=== PATIENT | male | born 1980 | race African-American/Black ===

== ENCOUNTER 2018-09-30 14:48 | Emergency (ER) | payer SELFPAY ==
[~2018-09-30] VITALS: Ht 182.9 cm; Wt 116.0 kg
[2018-09-30] MEDS ORDERED: IV NORMAL SALINE 1,000ML 1,000 ML IV ONE ×2 (15:15→16:00)
[2018-09-30 15:20] LABS: BASO # 0.1 x10^3/uL (0.0-0.2); BASO % 1 % (0-3); EOS # 0.1 x10^3/uL (0.0-0.7); EOS % 1 % (0-3); HEMATOCRIT 42.8 % (39.0-53.0); HEMOGLOBIN 13.9 g/dL (13.0-17.5); LYMPH # 4.9 x10^3/uL (1.0-4.8); LYMPH % 28 % (24-48); MEAN CORPUSCULAR HEMOGLOBIN 32 pg (25-35); MEAN CORPUSCULAR HGB CONC 33 g/dL (31-37); MEAN CORPUSCULAR VOLUME 98 fL (79-100); MONO # 1.9 x10^3/uL (0.0-1.1); MONO % 11 % (0-9); NEUT # 10.3 x10^3uL (1.8-7.7); NEUT % 60 % (31-73); PLATELET COUNT 224 x10^3/uL (140-400); RED BLOOD COUNT 4.35 x10^6/uL (4.30-5.70); RED CELL DISTRIBUTION WIDTH 12.9 % (11.5-14.5); WHITE BLOOD COUNT 17.3 x10^3/uL (4.0-11.0)
--- NOTE | 2018-09-30 15:20 | PHYS DOC ---
Adult General Chief Complaint Chief Complaint: OVERDOSE HPI HPI Patient is a 30-year-old male presents via EMS after being found down with presumed intoxication with K2. He became combative for EMS when they tried to arouse him. EMS gave 400 mg of ketamine to deal with this agitation. History is limited from the patient due to altered mental status.[] Review of Systems Review of Systems Unable to obtain due to altered mental status All other systems were reviewed and found to be within normal limits, except as documented in this note. Physical Exam Physical Exam Constitutional: Well developed, well nourished, sonorous respirations, not protecting his airway[] HENT: Normocephalic, atraumatic, bilateral external ears normal, TMs are clear, no blood. The TM, no fluid oropharynx moist, no oral exudates, nose normal. Pooled oral secretions [] Eyes: PERRLA, conjunctiva normal, no discharge. [] Neck: Normal range of motion, no tenderness, supple, no stridor. [] Cardiovascular:Heart rate is mildly tachycardic in the low 100s with a regular rhythm, no murmur [] Lungs & Thorax: Bilateral breath sounds clear to auscultation [] Abdomen: Bowel sounds normal, soft, no tenderness, no masses, no pulsatile masses. [] Skin: Warm, dry, no erythema, no rash. [] Back: No tenderness, no CVA tenderness. [] Extremities: No tenderness, no cyanosis, no clubbing, ROM intact, no edema. [] Neurologic: GCS of 7 -E2, V1, M4 . [] Psychologic: Unable to assess. [] EKG EKG EKG shows a sinus rhythm at 102 bpm, normal axis, normal QTC, patient has an incomplete right bundle-branch block, no ST elevation. Interpreted by me at 1519.[] Radiology/Procedures Radiology/Procedures PROCEDURE: CT HEAD AND CERVICAL SPINE WO CT scan of the head without contrast 09/30/2018 Clinical History: Altered mental status. Technique: Unenhanced, contiguous, 5 mm axial sections were obtained through the head. One or more of the following individualized dose reduction techniques were utilized for this study: 1. Automated exposure control. 2. Adjustment of the mA and/or kV according to patient size. 3. Use of iterative reconstruction technique. Findings: Images from the study are degraded by patient motion and due to the patient's large body habitus. The ventricles and sulci are within normal limits in size and configuration. No acute parenchymal abnormality is seen. No extra-axial fluid collection is noted. No skull fracture is seen. Near complete opacification of the right maxillary sinus due to mucosal thickening is seen. Moderate mucosal thickening is seen involving ethmoid air cells bilaterally. No skull fracture is seen. IMPRESSION: No acute intracranial abnormality is seen. CT scan of the cervical spine without contrast 09/30/2018 Clinical history: Patient found down and unresponsive. Technique: Unenhanced, contiguous, 0.625 mm axial sections were obtained through the cervical spine. Axial, coronal and sagittal reconstructed images were obtained. One or more of the following individualized dose reduction techniques were utilized for this study: 1. Automated exposure control. 2. Adjustment of the mA and/or kV according to patient size. 3. Use of iterative reconstruction technique. Findings: Images from the study are degraded by patient motion and due to the patient's large body habitus. Sagittal and coronal reconstructed images demonstrate mild lateral curvature of the cervical spine, convex to the left. There is straightening of the normal cervical lordosis. An ET tube is noted in place. No fracture or subluxation of the cervical vertebrae is seen. Impression: No fracture or subluxation of the cervical vertebra is identified. PROCEDURE: PORTABLE CHEST 1V Portable chest, 09/30/2018: HISTORY: Altered mental status And ET tube is in place with its tip located 3-4 cm above the ursula. The depth of inspiration is poor. The heart is at the upper limits of normal in size for the AP technique. There are streaky bibasilar opacities, probably discoid atelectasis. There is no evidence of pneumothorax or pleural fluid. IMPRESSION: 1. The ET tube is in satisfactory position. 2. Poor depth of inspiration with bibasilar atelectasis.[] Course & Med Decision Making Course & Med Decision Making Pertinent Labs and Imaging studies reviewed. (See chart for details) ED course: Patient arrived, was placed in bed, had a nasal trumpet placed. His oxygen saturation was noted to decrease to the 70s percent, he was placed on nonrebreather is a bridge to intubation. He was intubated utilizing lidocaine to prevent intracranial pressure increase with intubation, etomidate, and succinylcholine. 8.0 ET tube was visualized passing through the cords. He was transported to and from [place] with any complications. After the return of lab and imaging findings, these were discussed with the hospitalist is consultation for admission. He was admitted to [facility] due to their higher le [place] of ICU capabilities. Medical decision making: Patient with altered mental status that was not maintaining his airway. Concerned about substance use/abuse. There is no evidence of a stroke, bleed, cervical spine fracture, or pneumonia. Other laboratory testing is pending at the time of this dictation.[] Dragon Disclaimer Dragon Disclaimer This electronic medical record was generated, in whole or in part, using a voice recognition dictation system. Departure Departure: Impression: Primary Impression: Altered mental status Disposition: 05 TRANSFER OTHER Admitting Physician: Low Hooper Condition: IMPROVED Referrals: PCP,NO (PCP) Problem Qualifiers Primary Impression: Altered mental status Altered mental status type: coma Coma depth: [employer] coma 3-8 Coma timing: at arrival to emergency department Qualified Codes: R40.2432 - [employer] coma scale score 3-8, at arrival to emergency department OLIVA CID DO Sep 30, 2018 15:20
--- NOTE | 2018-09-30 15:24 | RAD ---
Portable chest, 09/30/2018: HISTORY: Altered mental status And ET tube is in place with its tip located 3-4 cm above the ursula. The depth of inspiration is poor. The heart is at the upper limits of normal in size for the AP technique. There are streaky bibasilar opacities, probably discoid atelectasis. There is no evidence of pneumothorax or pleural fluid. IMPRESSION: 1. The ET tube is in satisfactory position. 2. Poor depth of inspiration with bibasilar atelectasis. Electronically signed by: Jc Padgett MD (09/30/2018 3:21 PM) [facility]
[2018-09-30 15:38] LABS: ALBUMIN 3.4 g/dL (3.4-5.0); ALBUMIN/GLOBULIN RATIO 0.8 (1.0-1.7); CREATININE 1.6 mg/dL (0.7-1.3); POTASSIUM 4.3 mmol/L (3.5-5.1); TOTAL BILIRUBIN 0.4 mg/dL (0.2-1.0); TOTAL PROTEIN 7.8 g/dL (6.4-8.2)
[2018-09-30 15:50] LABS: GFR 58.8
[2018-09-30] MEDS ORDERED: ETOMIDATE 40 MG/20 ML VIAL. IV ONE ×2 (16:00)
[2018-09-30] MEDS ORDERED: VECURONIUM 10 MG VIAL. IV ONE ×2 (16:00)
[2018-09-30] MEDS ORDERED: LIDOCAINE 1% Multi-Dose 20 ML VIAL. IJ ONE (16:00)
[2018-09-30] MEDS ORDERED: MIDAZOLAM HCL PF 5 MG/5 ML VIAL. ONE ×2 (16:00→16:01)
[2018-09-30] MEDS ORDERED: SUCCINYLCHOLINE 200 MG/10 ML VIAL. IV ONE (16:00)
--- NOTE | 2018-09-30 16:01 | RAD ---
CT scan of the head without contrast 09/30/2018 Clinical History: Altered mental status. Technique: Unenhanced, contiguous, 5 mm axial sections were obtained through the head. One or more of the following individualized dose reduction techniques were utilized for this study: 1. Automated exposure control. 2. Adjustment of the mA and/or kV according to patient size. 3. Use of iterative reconstruction technique. Findings: Images from the study are degraded by patient motion and due to the patient's large body habitus. The ventricles and sulci are within normal limits in size and configuration. No acute parenchymal abnormality is seen. No extra-axial fluid collection is noted. No skull fracture is seen. Near complete opacification of the right maxillary sinus due to mucosal thickening is seen. Moderate mucosal thickening is seen involving ethmoid air cells bilaterally. No skull fracture is seen. IMPRESSION: No acute intracranial abnormality is seen. CT scan of the cervical spine without contrast 09/30/2018 Clinical history: Patient found down and unresponsive. Technique: Unenhanced, contiguous, 0.625 mm axial sections were obtained through the cervical spine. Axial, coronal and sagittal reconstructed images were obtained. One or more of the following individualized dose reduction techniques were utilized for this study: 1. Automated exposure control. 2. Adjustment of the mA and/or kV according to patient size. 3. Use of iterative reconstruction technique. Findings: Images from the study are degraded by patient motion and due to the patient's large body habitus. Sagittal and coronal reconstructed images demonstrate mild lateral curvature of the cervical spine, convex to the left. There is straightening of the normal cervical lordosis. An ET tube is noted in place. No fracture or subluxation of the cervical vertebrae is seen. Impression: No fracture or subluxation of the cervical vertebra is identified. Electronically signed by: Dwaine Quiroz MD (09/30/2018 3:57 PM) [id number]
[2018-09-30 16:26] LABS: % ATYL 8 % (0-0); % BANDS 1 % (0-9); % LYMPHS 34 % (24-48); % MONOS 11 % (0-10); % SEGS 46 % (35-66)
[2018-09-30 16:28] LABS: ANISOCYTOSIS SLIGHT; PLT ESTIMATE ADEQUATE (ADEQUATE)
[2018-09-30 16:34] LABS: BGAS PH 7.32 (7.35-7.46)
[2018-09-30 17:05] LABS: BILIRUBIN,URINE NEG (NEG); CLARITY,URINE CLOUDY; COLOR,URINE YELLOW; GLUCOSE,URINE 100 mg/dL (NEG)
[2018-09-30 17:06] LABS: BACTERIA,URINE FEW /HPF (0-FEW); HYALINE CASTS, URINE OCC /HPF; NITRITE,URINE NEG (NEG); SQUAMOUS EPITHELIAL CELL,UR OCC /LPF; UROBILINOGEN,URINE 0.2 mg/dL (0.2 mg/dL)
[2018-09-30 17:10] LABS: BARBITURATES NEG (NEG); BENZODIAZEPINES POS (NEG); CANNABINOIDS NEG (NEG); COCAINE NEG (NEG); METHADONE NEG (NEG); OPIATES NEG (NEG); PHENCYCLIDINE NEG (NEG)
[2018-09-30 17:11] LABS: AMPHETAMINE/METHAMPHETAMINE NEG (NEG)
[2018-09-30] MEDS ORDERED: VECURONIUM 10 MG VIAL. IV PRN (18:00)
[2018-09-30] MEDS ORDERED: IV RINGERS SOLUTION,LACTATED 1,000 ML IV STA (18:52)
[2018-09-30] MEDS ORDERED: IV NORMAL SALINE 50ML 50 ML ONE (18:57)
[2018-09-30] MEDS ORDERED: SODIUM BICARB ADULT 8.4% 50 MEQ/50 ML DISP.SYRIN. ONE (18:59)
[2018-09-30 19:00] VITALS: BP 151/83
--- NOTE | 2018-10-01 07:48 | EKG ---
[address] [address] Test Date: 2018-09-30 Test Time: 15:19:06 Pat Name: AMELIA WINN Department: Room: Gender: M Respiratory Manager: MIKI : 1988-02-10 Requested By: OLIVA CID Order Number: [id number] Reading MD: Measurements Intervals [place] Rate: 102 P: 52 VT: 186 QRS: 63 QRSD: 82 T: 65 QT: 298 QTc: 392 Interpretive Statements SINUS TACHYCARDIA INCOMPLETE RIGHT BUNDLE BRANCH BLOCK QRS(T) CONTOUR ABNORMALITY CONSIDER ANTEROSEPTAL MYOCARDIAL DAMAGE POSSIBLY ABNORMAL ECG RI6.01 No previous ECG available for comparison
== END 2018-09-30 19:50 | disposition short-term general hospital (02) ==
LOC: EDBD 14:48 → ER 14:48
DX: R41.82 Altered mental status, unspecified (principal); F12.929 Cannabis use, unspecified with intoxication, unspecified; R40.2432 Glasgow coma scale score 3-8, at arrival to emergency department
CPT/HCPCS: 31500; 36415; 36600; 51702; 70450; 71045; 72125; 80053; 80307; 81001; 82550; 82803; 82947; 83605; 83735; 83880; 84484; 85007; 85025; 85610; 85730; 87040; 87205; 93005; 96361; 96365; 96368; 96375; 96376; 99285; G0480; J0330; J0696; J2060; J2250; J3010; J3490; 94002; J7030